=== PATIENT | female | born 1975 | race Caucasian/White ===

== ENCOUNTER 2018-10-26 17:12 | Emergency (ER) | payer MEDICAID ==
[~2018-10-26] VITALS: Ht 170.2 cm; Wt 72.6 kg
[2018-10-26 17:18] VITALS: BP_SYST 145
--- NOTE | 2018-10-26 18:28 | NUR ---
Patient to ER bed 5 to gown for evaluation. Side rails up. Report given to Guy EVANS.
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
--- NOTE | 2018-10-26 19:05 | NUR ---
Assessment remains unchanged, patient continues to await evaluation by ER MD. Report given to Afshin for continued care.
--- NOTE | 2018-10-26 19:50 | NUR ---
Pt alert, talkative, family member at bedside. Pt c/o 8/10 pain to back, neck, and left shoulder. Dr. Terry notified.
[2018-10-26] MEDS ORDERED: HYDROmorphone 1 MG INJ. 1 MG/ML AMPUL IVP ONE (20:15)
--- NOTE | 2018-10-26 20:15 | NUR ---
Dr. Terry at bedside.
[2018-10-26] MEDS ORDERED: IBUPROFEN 800 MG TABLET PO ONE (20:30)
--- NOTE | 2018-10-26 20:51 | NUR ---
Pt to CT via stretcher.
--- NOTE | 2018-10-26 21:15 | NUR ---
Pt returns from CT.
--- NOTE | 2018-10-26 22:00 | NUR ---
Pt sitting up in bed talking with . No needs verbalized at this time. Verbalizes improvement in pain.
--- NOTE | 2018-10-26 23:30 | NUR ---
Pt alert, talking to . No needs verbalized at this time.
--- NOTE | 2018-10-27 00:55 | NUR ---
Left arm sling applied, non-constrictive, pt verbalizes adequate support of extremity.
[2018-10-27 01:00] VITALS: BP_SYST 128
--- NOTE | 2018-10-27 01:00 | NUR ---
Patient given written and verbal discharge instructions and verbalizes understanding. ER MD discussed with patient the results and treatment provided. Patient in stable condition. ID arm band removed. Rx of Mchenry and Ibuprofen given. Patient educated on pain management and to follow up with PMD. Pain Scale 2/10. Opportunity for questions provided and answered. Medication side effect fact sheet provided.
== END 2018-10-27 01:00 | disposition home or self-care (01) ==
LOC: SED 17:12
DX: S43.402A Unspecified sprain of left shoulder joint, initial encounter (principal); S16.1XXA Strain of muscle, fascia and tendon at neck level, initial encounter; S39.012A Strain of muscle, fascia and tendon of lower back, initial encounter; E11.9 Type 2 diabetes mellitus without complications; R03.0 Elevated blood-pressure reading, without diagnosis of hypertension; Z88.5 Allergy status to narcotic agent; V43.52XA Car driver injured in collision with other type car in traffic accident, initial encounter; Y93.89 Activity, other specified; Y92.410 Unspecified street and highway as the place of occurrence of the external cause; Y99.8 Other external cause status
CPT/HCPCS: 71046; 72100; 72125; 72128; 73030; 81025; 99284; J1170

== ENCOUNTER 2021-02-02 06:12 | Day surgery (SDC) | payer MEDICAID, SELFPAY ==
[~2021-02-02] VITALS: Ht 170.2 cm; Wt 81.6 kg
[2021-02-02] MEDS ORDERED: SIMETHICONE 40 MG/0.6 ML ML ONE (07:14)
[2021-02-02 07:24] LABS: HCG,QUAL RESULT NEGATIVE (NEGATIVE)
[2021-02-02] MEDS: MIDAZOLAM HCL 5 MG/5 ML VIAL ONE ×4 (08:23→08:30)
[2021-02-02] MEDS: MEPERIDINE 100 MG INJ. 100 MG/ML VIAL ONE ×3 (08:24→08:35)
[2021-02-02] MEDS ORDERED: MIDAZOLAM HCL 5 MG/5 ML VIAL ONE (08:36)
[2021-02-02 10:06] VITALS: BP_SYST 115
== END 2021-02-02 09:50 | disposition home or self-care (01) ==
LOC: SMU 06:12 → SDS 06:12
PROVIDERS: ATTEND Internal Medicine Gastroenterology
DX: R19.4 Change in bowel habit (principal); K44.9 Diaphragmatic hernia without obstruction or gangrene; K29.70 Gastritis, unspecified, without bleeding; K22.10 Ulcer of esophagus without bleeding; K25.9 Gastric ulcer, unspecified as acute or chronic, without hemorrhage or perforation; K21.9 Gastro-esophageal reflux disease without esophagitis; J45.909 Unspecified asthma, uncomplicated; E11.9 Type 2 diabetes mellitus without complications; Z79.84 Long term (current) use of oral hypoglycemic drugs; Z79.899 Other long term (current) drug therapy; Z20.828 Contact with and (suspected) exposure to other viral communicable diseases
CPT/HCPCS: 36415; 43239; 45378; 82962; 84703; 87081; 88305; 88312; 88313; 99152; 99153; G0378; J2175; J2250; J7030; U0003